=== PATIENT | female | born 1955 | race Caucasian/White ===

== ENCOUNTER → 2017-02-12 | Outpatient (CLI) | payer OTHER | LOC: WI 13:02 | PROVIDERS: ATTEND Obstetrics & Gynecology Gynecology | DX: Z12.31 Encounter for screening mammogram for malignant neoplasm of breast (principal) | CPT/HCPCS: 77067; G0202 ==

== ENCOUNTER → 2018-02-13 | Outpatient (CLI) | payer OTHER ==
--- NOTE | 2018-02-13 16:55 | WOMENS IMAGING REPORT ---
EXAM DESCRIPTION: 3D SCREENING MAMMO BILAT COMPLETED DATE/TIME: 02/13/2018 12:37 pm REASON FOR STUDY: ROUTINE SCREENING;Z12.31 Z12.31 ENCNTR SCREEN MAMMOGRAM FOR MALIGNANT NEOPLASM OF YVONNE COMPARISON: 2011 to 2016 TECHNIQUE: Standard craniocaudal and mediolateral oblique views of each breast recorded using digita l acquisition and breast tomosynthesis. LIMITATIONS: None. FINDINGS: No masses, calcifications or architectural distortion. No areas of suspicion. Read with the assistance of CAD. .[facility] - R2 Cenova Version 1.3 .[facility] Imaging - R2 Cenova Version 1.3 .[facility] Imaging - R2 Cenova Version 2.4 .[facility] - R2 Cenova Version 2.4 .[facility] - R2 Tobacco Sieve Operator Version 9.2 IMPRESSION: NORMAL MAMMOGRAM. BIRADS 1. BREAST DENSITY: b. There are scattered areas of fibroglandular density. BIRAD: 1 NEGATIVE RECOMMENDATION: ROUTINE SCREENING COMMENT: The patient has been notified of the results by letter per SA requirements. Additional no tification policies are in place for contacting patient with suspicious or incomplete findings. Quality ID #[id number]: The [employer] recommends an annual screening mammogram for women aged 40 years or over. This facility utilizes a reminder system to ensure that all patients receive reminder letters, and/or direct phone calls for appointments. This includes reminders for routine scr eening mammograms, diagnostic mammograms, or other Breast Imaging Interventions when appropriate. Th is patient will be placed in the appropriate reminder system. The [employer] (ACR) has developed recommendations for screening MRI of the breast s in certain patient populations, to be used in conjunction with mammography. Breast MRI surveillanc e may be appropriate for women with more than 20% lifetime risk of developing breast cancer as deter mined by genetic testing, significant family history of the disease, or history of mantle radiation f or Hodgkins Disease. ACR Practice Guidelines 2008. DBT Technology DBT is a type of tomographic mammography. With conventional mammography, overlapping breast tissue ma y make lesions difficult to detect, even with good compression. DBT uses an x-ray tube that rotates a round the breast, taking images at different angles. These images are then combined to create thin sl ices of the breast that the radiologist can view as a 3D reconstruction. The [employer] unit can perform full-field digital mammograms (2D imaging); or DBT (3D imaging); or both, in a combination mode that quickly performs both the mammogram and the tomosynthesis scan while the breast is still compressed. PQRS 6045F: Fluoroscopic imaging is not utilized for breast tomosynthesis. TECHNICAL DOCUMENTATION: FINDING NUMBER: (1) ASSESSMENT: (1) JOB ID: [id number] [employer]- All Rights Reserved Reading location - IP/workstation name: [email or web address]
== END ==
LOC: WI 11:10
PROVIDERS: ATTEND Obstetrics & Gynecology Gynecology
DX: Z12.31 Encounter for screening mammogram for malignant neoplasm of breast (principal)
CPT/HCPCS: 77063; 77067

== ENCOUNTER 2018-07-14 14:53 | Inpatient (IN) | payer OTHER ==
[2018-07-14 18:02] LABS: APPEARANCE,URINE CLEAR; BILIRUBIN,URINE NEGATIVE (NEGATIVE); COLOR,URINE STRAW; GLUCOSE, URINE NEGATIVE (NEGATIVE); KETONES,URINE 100 mg/dL (NEGATIVE); URINE SPECIFIC GRAVITY 1.015
[2018-07-14 18:03] LABS: LEUKOCYTE ESTERASE,URINE TRACE (NEGATIVE); NITRITE,URINE NEGATIVE (NEGATIVE); PROTEIN,URINE NEGATIVE (NEGATIVE); UROBILINOGEN,URINE NEGATIVE mg/dL (<2.0)
[2018-07-14 18:34] LABS: ABSOLUTE LYMPHOCYTES (AUTO) 2.1 10^3/uL (0.5-4.7); ABSOLUTE MONOCYTES (AUTO) 1.2 10^3/uL (0.1-1.4); ABSOLUTE NEUT (AUTO) 9.9 10^3/uL (1.7-8.2); BASOPHILS % (AUTO) 0.3 % (0-2); EOSINOPHILS % (AUTO) 0.2 % (0-6); HEMATOCRIT 34.1 % (36.0-47.0); HEMOGLOBIN 11.5 g/dL (12.0-15.5); LYMPHOCYTES % (AUTO) 15.8 % (13-45); MEAN CORPUSCULAR HEMOGLOBIN 30.8 pg (27.0-33.4); MEAN CORPUSCULAR HGB CONC 33.6 g/dL (32.0-36.0); MEAN CORPUSCULAR VOLUME 92 fl (80-97); MONOCYTES % (AUTO) 8.8 % (3-13); PLATELET COUNT 288 10^3/uL (150-450); RED BLOOD COUNT 3.73 10^6/uL (3.72-5.28); RED CELL DISTRIBUTION WIDTH 13.5 % (11.5-14.0); SEGMENTED NEUTROPHILS % (AUTO) 74.9 % (42-78); TOTAL CELLS COUNTED % (AUTO) 100 %; WHITE BLOOD COUNT 13.2 10^3/uL (4.0-10.5)
[2018-07-14 18:55] LABS: ALANINE AMINOTRANSFERASE 29 U/L (9-52); ALBUMIN 4.1 g/dL (3.5-5.0); ALKALINE PHOSPHATASE 116 U/L (38-126); ANION GAP 8 (5-19); ASPARTATE AMINO TRANSFERASE 47 U/L (14-36); BILIRUBIN,DIRECT 0.6 mg/dL (0.0-0.4); BILIRUBIN,TOTAL 2.5 mg/dL (0.2-1.3); BLOOD UREA NITROGEN 39 mg/dL (7-20); CALCIUM 9.2 mg/dL (8.4-10.2); CARBON DIOXIDE 30 mmol/L (22-30); CHLORIDE 102 mmol/L (98-107); GLUCOSE 134 mg/dL (75-110); LIPASE 22.5 U/L (23-300); POTASSIUM 3.5 mmol/L (3.6-5.0); SODIUM 139.8 mmol/L (137-145); TOTAL PROTEIN 6.8 g/dL (6.3-8.2)
[2018-07-14] MEDS ORDERED: ASPIRIN 325 MG TABLET PO ONE (19:25)
--- NOTE | 2018-07-14 19:25 | ER Document Report ---
ED Medical Screen (RME) - General Chief Complaint: Low Blood Sugar Stated Complaint: BLOOD SUGAR ISSUES Time Seen by Provider: 07/14/18 16:17 Mode of Arrival: Ambulatory Information source: Patient Notes: Patient complained of nausea vomiting and not able to keep down her medication today. Denies chest pain and also denies abdominal pain. Patient says she generally does not feel well. Physical exam is unremarkable and the rest of review of system is normal. I have greeted and performed a rapid initial assessment of this patient. A comprehensive ED assessment and evaluation of the patient, analysis of test results and completion of the medical decision making process will be conducted by additional ED providers. TRAVEL OUTSIDE OF THE [place] IN LAST 30 DAYS: No - Related Data Allergies/Adverse Reactions: Penicillins Allergy (Mild, Verified 07/14/18 16:01) clarithromycin [From Biaxin] Adverse Reaction (Intermediate, Verified 07/14/18 16:01) bee stings Allergy (Severe, Uncoded 07/14/18 16:01) Edema Past Medical History - Social History Chew tobacco use (# tins/day): No Frequency of alcohol use: None Drug Abuse: None - Past Medical History Cardiac Medical History: Reports: Hx Heart Attack - 2000, Hx Hypercholesterolemia, Hx Hypertension - [place] in 2000 with 1 stent Denies: Hx Coronary Artery Disease Pulmonary Medical History: Reports: Hx Pneumonia - As an infant Denies: Hx Asthma, Hx Bronchitis, Hx COPD, Hx Tuberculosis Neurological Medical History: Denies: Hx Cerebrovascular Accident, Hx Seizures Endocrine Medical History: Reports: Hx Diabetes Mellitus Type 1, Hx Diabetes Mellitus Type 2, Hx Hyperthyroidism Renal/ Medical History: Denies: Hx Peritoneal Dialysis GI Medical History: Reports: Hx Gastroesophageal Reflux Disease Musculoskeltal Medical History: Reports Hx Arthritis Past Surgical History: Reports: Hx Cardiac Catheterization - 1 stent, Hx Cardiac Surgery - sent, Hx Section - 1986, Hx Cholecystectomy - 2 weeks ago, Hx Hysterectomy. Denies: Hx Pacemaker - Immunizations Hx Diphtheria, Pertussis, Tetanus Vaccination: Yes Physical Exam - Vital signs Vitals: Temp Pulse Resp BP Pulse Ox 98.5 F 77 18 158/45 H 98 07/14/18 15:04 07/14/18 15:04 07/14/18 15:04 07/14/18 15:04 07/14/18 15:04 Course - Vital Signs Vital signs: Temp Pulse Resp BP Pulse Ox 98.5 F 77 18 158/45 H 98 07/14/18 15:04 07/14/18 15:04 07/14/18 15:04 07/14/18 15:04 07/14/18 15:04 - Laboratory Result Diagrams: 07/14/18 18:17 07/14/18 18:17 Laboratory results interpreted by me: 07/14/18 07/14/18 07/14/18 17:34 18:17 18:17 WBC 13.2 H Hgb 11.5 L Hct 34.1 L Absolute Neutrophils 9.9 H Potassium 3.5 L BUN 39 H Glucose 134 H Total Bilirubin 2.5 H Direct Bilirubin 0.6 H AST 47 H Lipase 22.5 L Urine Ketones 100 H Ur Leukocyte Esterase TRACE H Doctor's Discharge - Discharge Referrals: SELENA MARTIN, CHECK VIEWER [Primary Care Provider] - Follow up as needed
[2018-07-14] MEDS ORDERED: ATORVASTATIN CALCIUM 80 MG TABLET PO ONE (20:38)
--- NOTE | 2018-07-14 20:45 | ER Document Report ---
ED General - General Chief Complaint: Low Blood Sugar Stated Complaint: BLOOD SUGAR ISSUES Time Seen by Provider: 07/14/18 16:17 Mode of Arrival: Ambulatory Notes: Patient is a 62-year-old female with a past medical history of coronary artery disease, insulin-dependent type 1 diabetes who presents with 3 days of nausea, vomiting and feeling generally poor. She denies any chest pain, shortness of breath, focal weakness or numbness. Nothing improves or worsens her symptoms. She attributed her symptoms initially to low blood sugar but admits that her blood sugars have actually been relatively well controlled on her insulin pump. No known sick contacts. She denies a history of similar symptoms in the past. Her last cardiac catheterization was in 2000 and she had a stent placed at that time. She has been unable to contact her primary care doctor due to the weather. TRAVEL OUTSIDE OF THE [place] IN LAST 30 DAYS: No - Related Data Allergies/Adverse Reactions: Penicillins Allergy (Mild, Verified 07/14/18 16:01) clarithromycin [From Biaxin] Adverse Reaction (Intermediate, Verified 07/14/18 16:01) bee stings Allergy (Severe, Uncoded 07/14/18 16:01) Edema Past Medical History - General Information source: Patient - Social History Smoking Status: Never Smoker Chew tobacco use (# tins/day): No Frequency of alcohol use: None Drug Abuse: None Lives with: Family Family History: Reviewed & Not Pertinent Patient has suicidal ideation: No Patient has homicidal ideation: No - Past Medical History Cardiac Medical History: Reports: Hx Heart Attack - 2000, Hx Hypercholesterolemia, Hx Hypertension - [place] in 2000 with 1 stent Denies: Hx Coronary Artery Disease Pulmonary Medical History: Reports: Hx Pneumonia - As an infant Denies: Hx Asthma, Hx Bronchitis, Hx COPD, Hx Tuberculosis Neurological Medical History: Denies: Hx Cerebrovascular Accident, Hx Seizures Endocrine Medical History: Reports: Hx Diabetes Mellitus Type 1, Hx Diabetes Mellitus Type 2, Hx Hyperthyroidism Renal/ Medical History: Denies: Hx Peritoneal Dialysis GI Medical History: Reports: Hx Gastroesophageal Reflux Disease Musculoskeletal Medical History: Reports Hx Arthritis Past Surgical History: Reports: Hx Cardiac Catheterization - 1 stent, Hx Cardiac Surgery - sent, Hx Section - 1986, Hx Cholecystectomy - 2 weeks ago, Hx Hysterectomy. Denies: Hx Pacemaker - Immunizations Hx Diphtheria, Pertussis, Tetanus Vaccination: Yes Hx Pneumococcal Vaccination: 10/29/07 Review of Systems - Review of Systems Notes: Constitutional: Negative for fever. HENT: Negative for sore throat. Eyes: Negative for visual changes. Cardiovascular: Negative for chest pain. Respiratory: Negative for shortness of breath. Gastrointestinal: Positive for vomiting. Negative for abdominal pain Genitourinary: Negative for dysuria. Musculoskeletal: Negative for back pain. Skin: Negative for rash. Neurological: Negative for headaches, weakness or numbness. 10 point ROS negative except as marked above and in HPI. Physical Exam - Vital signs Vitals: Temp Pulse Resp BP Pulse Ox 98.5 F 77 18 158/45 H 98 07/14/18 15:04 07/14/18 15:04 07/14/18 15:04 07/14/18 15:04 07/14/18 15:04 Interpretation: Hypertensive Notes: PHYSICAL EXAMINATION: GENERAL: Well-appearing, well-nourished and in no acute distress. HEAD: Atraumatic, normocephalic. EYES: Pupils equal round and reactive to light, extraocular movements intact, sclera anicteric, conjunctiva are normal. ENT: nares patent, oropharynx clear without exudates. Moist mucous membranes. NECK: Normal range of motion, supple without lymphadenopathy LUNGS: Breath sounds clear to auscultation bilaterally and equal. No wheezes rales or rhonchi. HEART: Regular rate and rhythm without murmurs ABDOMEN: Soft, nontender, normoactive bowel sounds. No guarding, no rebound. No masses appreciated. EXTREMITIES: Normal range of motion, no pitting or edema. No cyanosis. NEUROLOGICAL: No focal neurological deficits. Moves all extremities spontaneously and on command. PSYCH: Normal mood, normal affect. SKIN: Warm, Dry, normal turgor, no rashes or lesions noted. Course - Re-evaluation Re-evalutation: 07/14/18 20:40 Patient presents with concerns regarding her blood sugar and persistent vomiting for the past 3 days. He denies chest pain or shortness of breath but her troponin is markedly elevated at 2.4. Her EKG does show some mild ST depressions in V3 through 6 but this is effectively unchanged from her most recent EKG. She currently denies any symptoms of any kind. However I do suspect that this is an atypical presentation of a NSTEMI. She does have a history of coronary artery disease, had a stent placed at [facility] in 2000. We are currently in a disastrous situation, will work to try to arrange as rapid transport as possible. In the interim the patient will be given a dose of Lovenox, atorvastatin, aspirin. She was placed on telemetry. I will discuss with [facility] for transfer. 07/14/18 21:57 [address] did discuss with Dr. Hidalgo a hospitalist at [facility] who has accepted the patient. Patient has remained pain free. She remains hemodynamically stable. 07/15/18 03:14 Patient remains without chest pain. Her insulin pump remains in place. She is scheduled for a [facility] in the morning due to the weather. Repeat troponin will also be obtained. - Vital Signs Vital signs: Temp Pulse Resp BP Pulse Ox 98.5 F 77 15 146/46 H 97 07/14/18 15:04 07/14/18 15:04 07/15/18 01:50 07/15/18 01:49 07/15/18 01:50 - Laboratory Result Diagrams: 07/14/18 18:17 07/14/18 18:17 Laboratory results interpreted by me: 07/14/18 07/14/18 07/14/18 17:34 18:17 18:17 WBC 13.2 H Hgb 11.5 L Hct 34.1 L Absolute Neutrophils 9.9 H Potassium 3.5 L BUN 39 H Glucose 134 H Total Bilirubin 2.5 H Direct Bilirubin 0.6 H AST 47 H Lipase 22.5 L Urine Ketones 100 H Urine Urobilinogen Ur Leukocyte Esterase TRACE H 07/15/18 02:00 WBC Hgb Hct Absolute Neutrophils Potassium BUN Glucose Total Bilirubin Direct Bilirubin AST Lipase Urine Ketones 25 H Urine Urobilinogen 4.0 H Ur Leukocyte Esterase LARGE H - Diagnostic Test Radiology reviewed: Image reviewed, Reports reviewed Radiology results interpreted by me: 07/15/18 03:15 Chest x-ray: No acute infiltrate or pneumothorax - EKG Interpretation by Me Additional EKG results interpreted by me: 07/14/18 20:48 Sinus rhythm. Rate 72. Subtle ST depressions in V3 through 6 unchanged from prior 2011. QTC is 446. Discharge - Discharge Clinical Impression: NSTEMI (non-ST elevated myocardial infarction) Nausea and vomiting Qualifiers: Vomiting type: unspecified Vomiting Intractability: non-intractable Qualified Code(s): R11.2 - Nausea with vomiting, unspecified Condition: Fair Disposition: [place] Referrals: SELENA MARTIN, METAL GRADER [Primary Care Provider] - Follow up as needed
[2018-07-14] MEDS ORDERED: ATORVASTATIN CALCIUM 80 MG TABLET ONE (21:04)
[2018-07-14] MEDS ORDERED: ENOXAPARIN SODIUM INJ 120 MG/0.8 ML DISP.SYRIN SUBCUT ONE (22:11)
[2018-07-14] MEDS ORDERED: ENOXAPARIN SODIUM INJ 100 MG/1 ML DISP.SYRIN SUBCUT ONE (22:13)
[2018-07-14] MEDS: ENOXAPARIN SODIUM INJ 100 MG/1 ML DISP.SYRIN SUBCUT SCH (22:16)
[2018-07-15 03:06] LABS: APPEARANCE,URINE CLEAR; BILIRUBIN,URINE NEGATIVE (NEGATIVE); COLOR,URINE YELLOW; GLUCOSE, URINE NEGATIVE (NEGATIVE); KETONES,URINE 25 mg/dL (NEGATIVE); LEUKOCYTE ESTERASE,URINE LARGE (NEGATIVE); NITRITE,URINE NEGATIVE (NEGATIVE); PROTEIN,URINE NEGATIVE (NEGATIVE); URINE SPECIFIC GRAVITY 1.019
[2018-07-15 04:52] LABS: HEMATOCRIT 33.2 % (36.0-47.0); MEAN CORPUSCULAR HEMOGLOBIN 30.3 pg (27.0-33.4); MEAN CORPUSCULAR HGB CONC 33.2 g/dL (32.0-36.0); MEAN CORPUSCULAR VOLUME 91 fl (80-97); PLATELET COUNT 249 10^3/uL (150-450); RED BLOOD COUNT 3.65 10^6/uL (3.72-5.28); RED CELL DISTRIBUTION WIDTH 13.4 % (11.5-14.0)
--- NOTE | 2018-07-15 05:14 | EKG REPORT ---
SEVERITY:- ABNORMAL ECG - SINUS RHYTHM PROBABLE INFERIOR INFARCT, AGE INDETERMINATE NONSPECIFIC T ABNORMALITIES, ANT-LAT LEADS : Confirmed by: Dionisio Wei 15-Jul-2018 05:14:28
--- NOTE | 2018-07-15 08:36 | RADIOLOGY REPORT (SQ) ---
EXAM DESCRIPTION: CHEST SINGLE VIEW COMPLETED DATE/TIME: 07/14/2018 11:08 pm REASON FOR STUDY: cp COMPARISON: 07/06/2012 EXAM PARAMETERS: NUMBER OF VIEWS: One view. TECHNIQUE: Single frontal radiographic view of the chest acquired. RADIATION DOSE: NA LIMITATIONS: None. FINDINGS: LUNGS AND PLEURA: No opacities, masses or pneumothorax. No pleural effusion. MEDIASTINUM AND HILAR STRUCTURES: No masses. Contour normal. HEART AND VASCULAR STRUCTURES: Heart normal in size. Normal vasculature. BONES: No acute findings. HARDWARE: None in the chest. OTHER: No other significant finding. IMPRESSION: NO ACUTE RADIOGRAPHIC FINDING IN THE CHEST. TECHNICAL DOCUMENTATION: JOB ID: [id number] [employer]- All Rights Reserved Reading location - IP/workstation name: [email or web address]
[2018-07-15] MEDS: ENOXAPARIN SODIUM INJ 100 MG/1 ML DISP.SYRIN SUBCUT SCH ×2 (10:01→23:08)
[2018-07-15] MEDS ORDERED: MAG HYDROX/AL HYDROX/SIMETH SUSP 30 ML UDCUP PO PRN (14:38)
[2018-07-15] MEDS ORDERED: NITROGLYCERIN 0.4 MG/TAB 25 TAB/BOTTLE SL PRN (14:38)
[2018-07-15] MEDS ORDERED: MORPHINE SULFATE 10 MG/ML INJ IV PRN (14:38)
[2018-07-15] MEDS ORDERED: HYDRALAZINE HCL INJ/PF 20 MG/1 ML SDV IV PRN (14:47)
[2018-07-15] MEDS ORDERED: GLUCAGON,HUMAN RECOMB 1 MG INJ IM PRN (14:48)
[2018-07-15] MEDS ORDERED: DEXTROSE 50%-WATER 25 GM/50 ML DISP.SYRIN IV PRN ×2 (14:48)
[2018-07-15] MEDS ORDERED: DEXTROSE 40% GEL 15 GM TUBE PO PRN ×2 (14:48)
--- NOTE | 2018-07-15 15:04 | PDOC H&P ---
History of Present Illness Admission Date/PCP: 07/15/18 12:41 SELENA MARTIN NP History of Present Illness: COLT TONG is a 62 year old female with a past medical history significant for insulin-dependent diabetes mellitus, [place] status post 1 stent, hypertension, hyperlipidemia, hypothyroidism, GERD, and anemia who presented to the emergency department with a complaint of dehydration due to nausea and vomiting for the previous 3 days. She reports that she had discontinued her insulin pump due to nausea and vomiting and was concerned about elevated blood sugars. Evaluation in the emergency department revealed leukocytosis with a WBC of 13.2 which has subsequently resolved, baseline anemia with a hemoglobin of 11.5, slight hypokalemia (3.5), elevated BUN (39), glucose of 134. Most significantly she was noted to have an elevated troponin of 2.340. Initially the patient was arranged to be transferred [facility] all those [facility] [place] for continued care; the patient's established family practice physician is located at [facility]. At some point, the patient declined the transfer; the ED physician consulted in-house cardiology who approved the patient staying at [facility] for medical management. She was referred to the hospitalist service for admission and management of the above complaints. Past Medical History Cardiac Medical History: Reports: Myocardial Infarction - 2000; s/p stent x1, Hyperlipidema, Hypertension Pulmonary Medical History: Denies: Asthma, Bronchitis, Chronic Obstructive Pulmonary Disease (COPD), Tuberculosis Neurological Medical History: Denies: Seizures Endocrine Medical History: Reports: Diabetes Mellitus Type 2 - IDDM, Hyperthyroidism Renal/ Medical History: Reports: None Malignancy Medical History: Reports: None GI Medical History: Reports: Gastroesophageal Reflux Disease Musculoskeltal Medical History: Reports: Arthritis Skin Medical History: Reports: None Psychiatric Medical History: Reports: None Traumatic Medical History: Reports: None Hematology: Reports: Anemia Infectious Medical History: Reports: None Past Surgical History Past Surgical History: Reports: Cardiac Catheterization - 1 stent, Section - 1986, Cholecystectomy, Hysterectomy Denies: Pacemaker Social History Information Source: Patient Lives with: Family Smoking Status: Never Smoker Frequency of Alcohol Use: None Hx Recreational Drug Use: No Hx Prescription Drug Abuse: No - Advance Directive Resuscitation Status: Full Code Surrogate healthcare decision maker:: The patient's son, PAMELA Tong, Family History Family History: Reviewed & Not Pertinent Parental Family History Reviewed: Yes Children Family History Reviewed: Yes Sibling(s) Family History Reviewed.: Yes Medication/Allergy Allergies/Adverse Reactions: Penicillins Allergy (Mild, Verified 07/14/18 16:01) clarithromycin [From Biaxin] Adverse Reaction (Intermediate, Verified 07/14/18 16:01) bee stings Allergy (Severe, Uncoded 07/14/18 16:01) Edema Review of Systems Constitutional: ABSENT: chills, fever(s), headache(s), weight gain, weight loss Eyes: ABSENT: visual disturbances Ears: ABSENT: hearing changes Cardiovascular: PRESENT: as per HPI. ABSENT: chest pain, dyspnea on exertion, edema, orthropnea, palpitations Respiratory: ABSENT: cough, hemoptysis Gastrointestinal: PRESENT: as per HPI, nausea, vomiting. ABSENT: abdominal pain , constipation, diarrhea, hematemesis, hematochezia Genitourinary: ABSENT: dysuria, hematuria Musculoskeletal: ABSENT: joint swelling Integumentary: ABSENT: rash, wounds Neurological: ABSENT: abnormal gait, abnormal speech, confusion, dizziness, focal weakness, syncope Psychiatric: ABSENT: anxiety, depression, homidical ideation, suicidal ideation Endocrine: ABSENT: cold intolerance, heat intolerance, polydipsia, polyuria Hematologic/Lymphatic: ABSENT: easy bleeding, easy bruising Physical Exam Vital Signs: Temp Pulse Resp BP Pulse Ox 98.5 F 77 17 168/58 H 97 07/14/18 15:04 07/14/18 15:04 07/15/18 13:01 07/15/18 13:00 07/15/18 13:01 General appearance: PRESENT: no acute distress, obese, well-developed, well- nourished Head exam: PRESENT: atraumatic, normocephalic Eye exam: PRESENT: conjunctiva pink, EOMI, PERRLA. ABSENT: scleral icterus Ear exam: PRESENT: normal external ear exam Mouth exam: PRESENT: moist, tongue midline Neck exam: ABSENT: carotid bruit, JVD, lymphadenopathy, thyromegaly Respiratory exam: PRESENT: clear to auscultation hollie, symmetrical, unlabored. ABSENT: rales, rhonchi, wheezes Cardiovascular exam: PRESENT: RRR, +S1, +S2. ABSENT: diastolic murmur, rubs, systolic murmur Pulses: PRESENT: normal dorsalis pedis pul Vascular exam: PRESENT: normal capillary refill GI/Abdominal exam: PRESENT: normal bowel sounds, soft. ABSENT: distended, guarding, mass, organolmegaly, rebound, tenderness Rectal exam: PRESENT: deferred Extremities exam: PRESENT: full ROM. ABSENT: calf tenderness, clubbing, pedal edema Neurological exam: PRESENT: alert, awake, oriented to person, oriented to place , oriented to time, oriented to situation, CN II-XII grossly intact. ABSENT: motor sensory deficit Psychiatric exam: PRESENT: appropriate affect, normal mood. ABSENT: homicidal ideation, suicidal ideation Skin exam: PRESENT: dry, intact, warm. ABSENT: cyanosis, rash Results Impressions: Chest X-Ray 07/14/18 21:53 IMPRESSION: NO ACUTE RADIOGRAPHIC FINDING IN THE CHEST. Assessment & Plan - Diagnosis (1) NSTEMI (non-ST elevated myocardial infarction) Is this a current diagnosis for this admission?: Yes Plan: The patient presented with vague symptoms of "dehydration" but is unable to describe her symptoms in detail. She does confirm that she had 3 days of nausea and vomiting prior to arrival to the emergency department. She denies classic cardiac chest pain symptoms, back pain, shoulder pain, headache, dizziness, palpitations, dyspnea. Troponin was elevated 2.34, now trending down. 2.34--> 1.990--> 1.520 EKG demonstrates normal sinus rhythm with nonspecific T-wave changes to the anterior and lateral leads. Chest x-ray is benign. The patient declined transfer divided despite having an accepting physician. Therefore, her transfer was discontinued. Cardiology has been consulted; primary management per their expertise. The patient has been placed on full dose Lovenox and aspirin therapy. She is admitted to the telemetry floor. (2) Diabetes mellitus Qualifiers: Diabetes mellitus type: type 2 Diabetes mellitus half-way insulin use: with termination clerk use Is this a current diagnosis for this admission?: Yes Plan: Patient endorses insulin-dependent diabetes mellitus; utilizes insulin pump at home. She reports that she had nausea and vomiting for several days and therefore discontinued her insulin pump because she was not eating. She presents to the emergency department today concerned that she was dehydrated. Fortunately she was found to have a glucose of 134 with a closed anion gap and normal bicarb. She is noted to be slightly dehydrated with BUN of 39 and normal creatinine. She is placed on a consistent carb diet. Accu-Cheks before meals and at bedtime with Humalog for sliding scale coverage. We will assess hemoglobin A1c with lab work. (3) Hypertension Is this a current diagnosis for this admission?: Yes Plan: The patient endorses hypertension; believes that she takes ramipril and labetalol but does not have her medications her list with her today. She is noted to be slightly hypertensive in the emergency department. We will resume home medications once reconciled. IV hydralazine as needed for blood pressure control. Cardiac diet. (4) Hyperlipidemia Is this a current diagnosis for this admission?: Yes Plan: Lipid panel with the lab work. Continue atorvastatin. (5) GERD (gastroesophageal reflux disease) Is this a current diagnosis for this admission?: Yes Plan: PPI. (6) Nausea and vomiting Qualifiers: Vomiting type: unspecified Vomiting Intractability: non-intractable Qualified Code(s): R11.2 - Nausea with vomiting, unspecified Is this a current diagnosis for this admission?: Yes Plan: Resolved. Antiemetics as needed. - Time Time Spent: 50 to 70 Minutes Medications reviewed and adjusted accordingly: Yes Anticipated discharge: Home Within: within 72 hours - Inpatient Certification Based on my medical assessment, after consideration of the patient's comorbidities, presenting symptoms, or acuity I expect that the services needed warrant INPATIENT care.: Yes I certify that my determination is in accordance with my understanding of Medicare's requirements for reasonable and necessary INPATIENT services [42 CFR 412.3e].: Yes Medical Necessity: Need For Continuous Telemetry Monitoring, Risk of Diagnosis Which Will Require Inpatient Eval/Care/Monitoring
[2018-07-15 16:13] LABS: HEMOGLOBIN 11.7 g/dL (12.0-15.5); MEAN CORPUSCULAR HEMOGLOBIN 30.4 pg (27.0-33.4); MEAN CORPUSCULAR HGB CONC 33.6 g/dL (32.0-36.0); MEAN CORPUSCULAR VOLUME 91 fl (80-97); PLATELET COUNT 282 10^3/uL (150-450); RED BLOOD COUNT 3.87 10^6/uL (3.72-5.28); RED CELL DISTRIBUTION WIDTH 13.5 % (11.5-14.0); WHITE BLOOD COUNT 7.4 10^3/uL (4.0-10.5)
[2018-07-15 16:38] LABS: ANION GAP 6 (5-19); BLOOD UREA NITROGEN 23 mg/dL (7-20); CALCIUM 9.1 mg/dL (8.4-10.2); CARBON DIOXIDE 31 mmol/L (22-30); CHLORIDE 104 mmol/L (98-107); GLUCOSE 110 mg/dL (75-110); POTASSIUM 3.4 mmol/L (3.6-5.0); SODIUM 140.6 mmol/L (137-145)
[2018-07-15] MEDS: ATORVASTATIN CALCIUM 80 MG TABLET PO SCH (22:59)
[2018-07-15] MEDS: FAMOTIDINE 20 MG TABLET PO SCH (23:00)
[2018-07-15] MEDS: INSULIN LISPRO 100 UNIT/ML 3 ML VIAL SUBCUT PRN (23:20)
[2018-07-16] MEDS: ONDANSETRON HCL INJ/PF 4 MG/2 ML SDV IV PRN (03:09)
[2018-07-16 05:15] LABS: HEMATOCRIT 32.6 % (36.0-47.0); HEMOGLOBIN 11.1 g/dL (12.0-15.5); MEAN CORPUSCULAR HEMOGLOBIN 31.1 pg (27.0-33.4); MEAN CORPUSCULAR HGB CONC 34.1 g/dL (32.0-36.0); MEAN CORPUSCULAR VOLUME 91 fl (80-97); PLATELET COUNT 234 10^3/uL (150-450); RED BLOOD COUNT 3.57 10^6/uL (3.72-5.28); RED CELL DISTRIBUTION WIDTH 13.5 % (11.5-14.0); WHITE BLOOD COUNT 7.8 10^3/uL (4.0-10.5)
[2018-07-16 05:34] LABS: BLOOD UREA NITROGEN 19 mg/dL (7-20); CALCIUM 8.4 mg/dL (8.4-10.2); CHOLESTEROL 130.34 mg/dL (0-200); GLUCOSE 229 mg/dL (75-110); POTASSIUM 3.7 mmol/L (3.6-5.0); TRIGLYCERIDES 95 mg/dL (<150)
[2018-07-16 05:39] LABS: ANION GAP 7 (5-19); CARBON DIOXIDE 28 mmol/L (22-30); CHLORIDE 106 mmol/L (98-107); SODIUM 140.5 mmol/L (137-145)
[2018-07-16 05:45] LABS: DIRECT LDL 70 mg/dL (<100)
[2018-07-16] MEDS ORDERED: DOCUSATE SODIUM 100 MG CAPSULE ONE (08:25)
[2018-07-16] MEDS ORDERED: INSULIN LISPRO 100 UNIT/ML 3 ML VIAL ONE (08:25)
[2018-07-16] MEDS ORDERED: ENOXAPARIN SODIUM INJ 40 MG/0.4 ML DISP.SYRIN SUBCUT ONE (08:25)
[2018-07-16] MEDS ORDERED: ASPIRIN 81 MG TABLET, ENT COATED PO ONE (08:25)
[2018-07-16] MEDS: INSULIN LISPRO 100 UNIT/ML 3 ML VIAL SUBCUT PRN ×4 (08:26→23:13)
[2018-07-16] MEDS: ASPIRIN 81 MG TABLET, ENT COATED PO SCH (09:15)
[2018-07-16] MEDS: DOCUSATE SODIUM 100 MG CAPSULE PO SCH (09:15)
[2018-07-16] MEDS: ENOXAPARIN SODIUM INJ 100 MG/1 ML DISP.SYRIN SUBCUT SCH ×2 (09:15→23:12)
[2018-07-16] MEDS: FAMOTIDINE 20 MG TABLET PO SCH ×2 (09:16→23:11)
--- NOTE | 2018-07-16 15:26 | EKG REPORT ---
SEVERITY:- ABNORMAL ECG - SINUS RHYTHM CONSIDER ANTERIOR INFARCT ABNORMAL T, CONSIDER ISCHEMIA, LATERAL LEADS : Confirmed by: Evon King MD 16-Jul-2018 15:25:35
[2018-07-16] MEDS: METOPROLOL SUCCINATE 25 MG TAB.SR.24H PO SCH (23:11)
[2018-07-16] MEDS: ATORVASTATIN CALCIUM 80 MG TABLET PO SCH (23:11)
[2018-07-16] MEDS ORDERED: RAMIPRIL 2.5 MG CAPSULE ONE (23:20)
[2018-07-16] MEDS: RAMIPRIL 2.5 MG CAPSULE PO SCH (23:22)
[2018-07-17 04:49] LABS: HEMOGLOBIN 11.1 g/dL (12.0-15.5); MEAN CORPUSCULAR HEMOGLOBIN 31.2 pg (27.0-33.4); MEAN CORPUSCULAR HGB CONC 34.7 g/dL (32.0-36.0); MEAN CORPUSCULAR VOLUME 90 fl (80-97); PLATELET COUNT 232 10^3/uL (150-450); RED BLOOD COUNT 3.56 10^6/uL (3.72-5.28); RED CELL DISTRIBUTION WIDTH 13.2 % (11.5-14.0); WHITE BLOOD COUNT 7.9 10^3/uL (4.0-10.5)
[2018-07-17] MEDS: INSULIN LISPRO 100 UNIT/ML 3 ML VIAL SUBCUT PRN ×4 (08:19→22:48)
[2018-07-17] MEDS: RAMIPRIL 2.5 MG CAPSULE PO SCH ×2 (10:03→23:30)
[2018-07-17] MEDS: METOPROLOL SUCCINATE 25 MG TAB.SR.24H PO SCH ×2 (10:04→22:47)
[2018-07-17] MEDS: ISOSORBIDE MONONITRATE 60 MG TAB.ER.24H PO SCH (10:04)
[2018-07-17] MEDS: FAMOTIDINE 20 MG TABLET PO SCH ×2 (10:04→22:47)
[2018-07-17] MEDS: DOCUSATE SODIUM 100 MG CAPSULE PO SCH (10:04)
[2018-07-17] MEDS: ENOXAPARIN SODIUM INJ 100 MG/1 ML DISP.SYRIN SUBCUT SCH (10:05)
[2018-07-17] MEDS ORDERED: CLOPIDOGREL BISULFATE 300 MG TABLET PO ONE ×2 (11:31→16:30)
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
--- NOTE | 2018-07-17 12:25 | PDOC PROGRESS REPORT ---
Subjective Progress Note for:: 07/17/18 Subjective:: Patient seems to be doing better with gradual improvement. Pt is denying any chest arm or neck discomfort. Patient denying any PND, orthopnea. Patient denied any sustained palpitations, dizziness, syncope, near syncope. Patient denying any fever chills. Patient denying any other significant discomfort. Patient is maintaining sinus rhythm. Review of systems: Rest review of systems negative. Medications: Medications have been reviewed. Reason For Visit: NSTEMI Physical Exam Vital Signs: Temp Pulse Resp BP Pulse Ox 98.7 F 67 14 165/49 H 96 07/17/18 08:02 07/17/18 08:02 07/17/18 08:02 07/17/18 08:02 07/17/18 08:02 Intake & Output 07/16/18 07/17/18 07/18/18 06:59 06:59 06:59 Intake Total 200 2514 Balance 200 2514 Weight 84.4 kg 85.7 kg Exam: GENERAL: well-nourished and in no acute distress. Alert and oriented x3 HEAD: Atraumatic, normocephalic. EYES: Pupils equal round and reactive to light, extraocular movements intact, sclera anicteric, conjunctiva are normal. ENT: TMs normal, nares patent, oropharynx clear without exudates. Moist mucous membranes. No oral ulcerations or bleeding gums noted NECK: supple without lymphadenopathy. Trachea is central. No cervical or axillary lymphadenopathy noted. Carotids are 2+, JVD WNL LUNGS: Respiration seems nonlabored, no significant accessory muscle action noted. Breath sounds clear to auscultation bilaterally and equal noted. No wheezes rales or rhonchi noted. No significant dullness noted on percussion. CHEST: Palpation of the chest wall shows no significant chest wall tenderness. HEART: [place] WARDROBE STYLIST, No PSH, 1/6 ROSALBA aortic area, 1/6 martínez systolic murmur mitral area, no rubs, no gallops. ABDOMEN: Soft, no significant tenderness appreciated, normoactive bowel sounds. No guarding, no rebound. No rigidity noted . No masses appreciated. EXTREMITIES: Pedal pulses are 1-2+, no calf tenderness noted. No clubbing or cyanosis. negative pedal edema noted NEUROLOGICAL: Focused neurological exam showed no significant neurologic deficit. Normal speech, no focal weakness appreciated. PSYCH: Normal mood, normal affect. Judgment and insight within normal limits. SKIN: No significant ecchymosis, skin is noted to be warm. MUSCULOSKELETAL EXAM: No significant acute joint swelling noted. Results Laboratory Results: 07/17/18 04:24 07/16/18 04:58 07/17/18 04:24 WBC 7.9 RBC 3.56 L Hgb 11.1 L Hct 32.0 L MCV 90 MCH 31.2 MCHC 34.7 RDW 13.2 Plt Count 232 07/15/18 15:50 Troponin I 1.150 EKG Comments: Sinus rhythm with minor nonspecific ST-T wave changes Impressions: Chest X-Ray 07/14/18 21:53 IMPRESSION: NO ACUTE RADIOGRAPHIC FINDING IN THE CHEST. Assessment & Plan - Diagnosis (1) NSTEMI (non-ST elevated myocardial infarction) Is this a current diagnosis for this admission?: Yes (2) Diabetes mellitus Qualifiers: Diabetes mellitus type: type 2 Diabetes mellitus residential insulin use: with terminal computer operator use Diabetes mellitus complication status: without complication Qualified Code(s): E11.9 - Type 2 diabetes mellitus without complications; Z79.4 - extermination supervisor (current) use of insulin; Z79.4 - intermediate ( current) use of insulin; Z79.4 - intermediate (current) use of insulin; Z79.4 - extermination supervisor (current) use of insulin Is this a current diagnosis for this admission?: Yes (3) GERD (gastroesophageal reflux disease) Qualifiers: Esophagitis presence: esophagitis presence not specified Qualified Code(s) : K21.9 - Gastro-esophageal reflux disease without esophagitis Is this a current diagnosis for this admission?: Yes (4) Hyperlipidemia Qualifiers: Hyperlipidemia type: unspecified Qualified Code(s): E78.5 - Hyperlipidemia , unspecified Is this a current diagnosis for this admission?: Yes (5) Hypertension Qualifiers: Hypertension type: essential hypertension Qualified Code(s): I10 - Essential (primary) hypertension Is this a current diagnosis for this admission?: Yes - Notes Notes: Non-STEMI: Patient had positive troponin I but no significant EKG changes, patient denies any chest pain but does have diabetes. At this point will evaluate patient with a 2D echo, and a nuclear stress test. These were ordered. In the meantime with optimize medical management of underlying CAD. Patient does give history of previous stent placement. Diabetes: Recommend good control of blood sugar. However should avoid any hypoglycemia and hyperglycemia. Patient being expertly managed by primary care M.D/hospitalist Gastroesophageal reflux: Recommend proton pump inhibitor, Protonix favored. Hyperlipidemia: LDL goal is less than 70. Continue with high potency statin therapy. Hypertension: Reasonably well controlled. Blood pressure goal in this patient is 135/85 or less. This was discussed with the patient. Currently blood pressure under reasonable control. Better medication for this patient are REECE inhibitor/ARB/beta francisco javier etc. discussed side effects of uncontrolled hypertension and also severe hypotension. - Time Time with patient: Greater than 35 minutes - CODE STATUS was discussed, patient remains full code. More than 50% of the time spent coordinating care, discussing management plans with involved caregivers. Management plans discussed with involved personnels. Medical decision making was of moderate to high complexity, patient's has multiple comorbidities. Medications reviewed and adjusted accordingly: Yes
[2018-07-17] MEDS: ASPIRIN 81 MG TABLET, ENT COATED PO SCH (12:40)
--- NOTE | 2018-07-17 18:33 | XCELERA REPORT ---
[address] [address] Transthoracic Echocardiogram Report Name: COLT KASPER Age: 62 yrs Gender: Female : 1955 Patient Status: Inpatient Patient Location: [address] [place] [address] Study Date: 07/17/2018 02:50 PM Height: 67 in Weight: 188 lb BSA: 2.0 m2 Procedure: A complete two-dimensional transthoracic echocardiogram was performed (2D, M-mode, spectral and color flow Doppler). The study was technically adequate with some images being suboptimal in quality. Reason For Study: Chest pain, non-STEMI Ordering Physician: DIONISIO ARORA Performed By: Mariann Villegas Interpretation Summary The left ventricular ejection fraction is normal. There is mild concentric left ventricular hypertrophy. The left ventricle is grossly normal size. Doppler measurements suggest pseudonormalized left ventricular relaxation, which is associated with grade II/IV or mild to moderate diastolic dysfunction Wall motion cannot be accurately commented on, but no definite regional wall motion abnormalities noted. The right ventricle is grossly normal size. The right ventricular systolic function is normal. The right atrium is normal. The left atrial size is normal. There is no mitral valve stenosis. There is a trace amount of mitral regurgitation There is no aortic valve stenosis No aortic regurgitation is present. There is a trace or physiologic amount of tricuspid regurgitation Tricuspid regurgitation jet envelope not well defined to measure RV systolic pressure accurately. The aortic root is not well visualized but is probably normal size. The inferior vena cava appeared normal and decreased > 50% with respiration (RAP 5-10 mmHg) There is no pericardial effusion. MMode/2D Measurements & Calculations RVDd: 2.6 cm LVIDd: 4.2 cm FS: 39.8 % Ao root diam: 2.5 cm IVSd: 1.0 cm LVIDs: 2.5 cm EDV(Teich): 76.9 ml Ao root area: 4.7 cm2 LVPWd: 0.98 cm ESV(Teich): 22.4 ml LA dimension: 3.4 cm EF(Teich): 70.9 % Doppler Measurements & Calculations MV E max chirag: MV P1/2t max chirag: Ao V2 max: LV V1 max P.4 cm/sec 122.9 cm/sec 146.6 cm/sec 4.9 mmHg MV A max chirag: MV P1/2t: 93.2 msec Ao max PG: LV V1 max: 105.1 cm/sec MVA(P1/2t): 2.4 cm2 8.6 mmHg 110.6 cm/sec MV E/A: 1.2 MV dec slope: 386.3 cm/sec2 MV dec time: 0.33 sec PA V2 max: MV P1/2t-pr_phl: 113.5 cm/sec 93.2 msec PA max P.2 mmHg Left Ventricle The left ventricle is grossly normal size. There is mild concentric left ventricular hypertrophy. The left ventricular ejection fraction is normal. Doppler measurements suggest pseudonormalized left ventricular relaxation, which is associated with grade II/IV or mild to moderate diastolic dysfunction. Wall motion cannot be accurately commented on, but no definite regional wall motion abnormalities noted. Right Ventricle The right ventricle is grossly normal size. There is normal right ventricular wall thickness. The right ventricular systolic function is normal. Atria The right atrium is normal. The left atrial size is normal. Interarterial septum not well visualized and not well dopplered. Cannot comment on ASD/PFO presence. Mitral Valve There is mild to moderate mitral annular calcification. There is no mitral valve stenosis. There is a trace amount of mitral regurgitation. Aortic Valve The aortic valve is not well visualized secondary to technical limitations. There is no aortic valve stenosis. No aortic regurgitation is present. Tricuspid Valve The tricuspid valve is not well visualized, but is grossly normal. There is no tricuspid stenosis. There is a trace or physiologic amount of tricuspid regurgitation. Tricuspid regurgitation jet envelope not well defined to measure RV systolic pressure accurately. Pulmonic Valve The pulmonic valve is not well visualized. Great Vessels The aortic root is not well visualized but is probably normal size. The inferior vena cava appeared normal and decreased > 50% with respiration (RAP 5-10 mmHg). Effusions There is no pericardial effusion. : DIONISIO ARORA > Dionisio Arora
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
[2018-07-17] MEDS ORDERED: GABAPENTIN 300 MG CAPSULE PO ONE (22:45)
[2018-07-17] MEDS: ATORVASTATIN CALCIUM 80 MG TABLET PO SCH (22:46)
[2018-07-17] MEDS: RAMIPRIL 5 MG CAPSULE PO SCH (22:46)
[2018-07-17] MEDS: ONDANSETRON HCL INJ/PF 4 MG/2 ML SDV IV PRN (22:50)
[2018-07-18] MEDS: INSULIN LISPRO 100 UNIT/ML 3 ML VIAL SUBCUT PRN ×4 (08:50→21:26)
[2018-07-18] MEDS: DOCUSATE SODIUM 100 MG CAPSULE PO SCH (09:42)
[2018-07-18] MEDS: METOPROLOL SUCCINATE 25 MG TAB.SR.24H PO SCH ×2 (09:48→21:26)
[2018-07-18] MEDS: ASPIRIN 81 MG TABLET, ENT COATED PO SCH (09:49)
[2018-07-18] MEDS: FAMOTIDINE 20 MG TABLET PO SCH (09:49)
[2018-07-18] MEDS: ISOSORBIDE MONONITRATE 60 MG TAB.ER.24H PO SCH (09:50)
[2018-07-18] MEDS: RAMIPRIL 5 MG CAPSULE PO SCH ×2 (09:50→21:25)
[2018-07-18] MEDS ORDERED: CLOPIDOGREL BISULFATE 75 MG TABLET ONE (09:53)
[2018-07-18] MEDS ORDERED: (PENDING PHARMACY ID) (Folic Acid [Folic Acid] 0.4 MG) PO SCH (10:00)
[2018-07-18] MEDS ORDERED: (PENDING PHARMACY ID) (Levothyroxine Sodium [Synthroid] 137 MCG) PO SCH (10:00)
[2018-07-18] MEDS ORDERED: GABAPENTIN 300 MG CAPSULE PO SCH (10:00)
[2018-07-18] MEDS ORDERED: CLOPIDOGREL BISULFATE 300 MG TABLET PO SCH (10:00)
--- NOTE | 2018-07-18 11:47 | PDOC PROGRESS REPORT ---
Subjective Progress Note for:: 07/18/18 Subjective:: Patient claims to have ambulated in the hallway without any problems. She has decided to stay here and have the stress test. Patient seems to be doing better with gradual improvement. Pt is denying any chest arm or neck discomfort. Patient denying any PND, orthopnea. Patient denied any sustained palpitations, dizziness, syncope, near syncope. Patient denying any fever chills. Patient denying any other significant discomfort. Patient is maintaining sinus rhythm. Review of systems: Rest review of systems negative. Medications: Medications have been reviewed. Reason For Visit: NSTEMI Physical Exam Vital Signs: Temp Pulse Resp BP Pulse Ox 98.7 F 66 16 166/51 H 92 07/18/18 07:33 07/18/18 07:33 07/18/18 07:33 07/18/18 07:33 07/18/18 07:33 Intake & Output 07/17/18 07/18/18 07/19/18 06:59 06:59 06:59 Intake Total 2514 1612 Balance 2514 1612 Weight 85.7 kg 86 kg Exam: GENERAL: well-nourished and in no acute distress. Alert and oriented x3 HEAD: Atraumatic, normocephalic. EYES: Pupils equal round and reactive to light, extraocular movements intact, sclera anicteric, conjunctiva are normal. ENT: TMs normal, nares patent, oropharynx clear without exudates. Moist mucous membranes. No oral ulcerations or bleeding gums noted NECK: supple without lymphadenopathy. Trachea is central. No cervical or axillary lymphadenopathy noted. Carotids are 2+, JVD WNL LUNGS: Respiration seems nonlabored, no significant accessory muscle action noted. Breath sounds clear to auscultation bilaterally and equal noted. No wheezes rales or rhonchi noted. No significant dullness noted on percussion. CHEST: Palpation of the chest wall shows no significant chest wall tenderness. 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 ABDOMEN: Soft, no significant tenderness appreciated, normoactive bowel sounds. No guarding, no rebound. No rigidity noted . No masses appreciated. EXTREMITIES: Pedal pulses are 1-2+, no calf tenderness noted. No clubbing or cyanosis. negative pedal edema noted NEUROLOGICAL: Focused neurological exam showed no significant neurologic deficit. Normal speech, no focal weakness appreciated. PSYCH: Normal mood, normal affect. Judgment and insight within normal limits. SKIN: No significant ecchymosis, skin is noted to be warm. MUSCULOSKELETAL EXAM: No significant acute joint swelling noted. Results Laboratory Results: 07/17/18 04:24 07/16/18 04:58 07/15/18 07/17/18 15:50 11:30 Troponin I 1.150 0.317 EKG Comments: Shows sinus rhythm without any sustained tachycardia or bradycardia. Impressions: Chest X-Ray 07/14/18 21:53 IMPRESSION: NO ACUTE RADIOGRAPHIC FINDING IN THE CHEST. Assessment & Plan - Diagnosis (1) NSTEMI (non-ST elevated myocardial infarction) Is this a current diagnosis for this admission?: Yes (2) Diabetes mellitus Qualifiers: Diabetes mellitus type: type 2 Diabetes mellitus retirement insulin use: with predatory animal exterminator use Diabetes mellitus complication status: without complication Qualified Code(s): E11.9 - Type 2 diabetes mellitus without complications; Z79.4 - long-term (current) use of insulin; Z79.4 - termite control technician ( current) use of insulin; Z79.4 - long-term (current) use of insulin; Z79.4 - long-term (current) use of insulin Is this a current diagnosis for this admission?: Yes (3) GERD (gastroesophageal reflux disease) Qualifiers: Esophagitis presence: esophagitis presence not specified Qualified Code(s) : K21.9 - Gastro-esophageal reflux disease without esophagitis Is this a current diagnosis for this admission?: Yes (4) Hyperlipidemia Qualifiers: Hyperlipidemia type: unspecified Qualified Code(s): E78.5 - Hyperlipidemia , unspecified Is this a current diagnosis for this admission?: Yes (5) Hypertension Qualifiers: Hypertension type: essential hypertension Qualified Code(s): I10 - Essential (primary) hypertension Is this a current diagnosis for this admission?: Yes - Notes Notes: Patient wishes to stay here for stress test and hopefully this can be completed tomorrow. Patient in the meantime has been encouraged to ambulate. Non-STEMI: Patient had positive troponin I but no significant EKG changes, patient denies any chest pain but does have diabetes. 2D echo shows normal LVEF. Nuclear stress test is pending. In the meantime with optimize medical management of underlying CAD. Patient does give history of previous stent placement. Diabetes: Recommend good control of blood sugar. However should avoid any hypoglycemia and hyperglycemia. Patient being expertly managed by primary care M.D/hospitalist Gastroesophageal reflux: Recommend proton pump inhibitor, Protonix favored. Hyperlipidemia: LDL goal is less than 70. Continue with high potency statin therapy. Hypertension: Reasonably well controlled. Blood pressure goal in this patient is 135/85 or less. This was discussed with the patient. Currently blood pressure under reasonable control. Better medication for this patient are REECE inhibitor/ARB/beta francisco javier etc. discussed side effects of uncontrolled hypertension and also severe hypotension. Because of patient's comorbid diagnosis, oropharyngeal exam, patient will benefit from evaluation for underlying sleep apnea discussed that sleep apnea is now considered a risk factors for accelerated atherosclerotic disease. - Time Time with patient: Greater than 35 minutes - CODE STATUS was discussed, patient remains full code. Surrogate decision-maker unchanged. Multiple medical problems were addressed. More than 50% of the time spent coordinating care, discussing management plans with involved caregivers. Management plans discussed with involved personnels. Medical decision making was of moderate to high complexity, patient's has multiple comorbidities. Medications reviewed and adjusted accordingly: Yes
[2018-07-18] MEDS: ISOSORBIDE MONONITRATE 30 MG TAB.ER.24H PO SCH (12:11)
[2018-07-18] MEDS: HYDROCHLOROTHIAZIDE 25 MG TABLET PO SCH (12:13)
[2018-07-18] MEDS: CLOPIDOGREL BISULFATE 75 MG TABLET PO SCH (12:15)
[2018-07-18] MEDS: LEVOTHYROXINE SODIUM 0.025 MG TABLET PO SCH (12:16)
[2018-07-18] MEDS: LANSOPRAZOLE 30 MG TAB.RAP.DR PO SCH (12:16)
[2018-07-18] MEDS: LEVOTHYROXINE SODIUM 0.112 MG TABLET PO SCH (12:17)
[2018-07-18] MEDS: GABAPENTIN 300 MG CAPSULE PO SCH ×2 (14:14→21:26)
[2018-07-18] MEDS: FOLIC ACID 1 MG TABLET PO SCH (14:21)
[2018-07-18] MEDS: ATORVASTATIN CALCIUM 80 MG TABLET PO SCH (21:26)
[2018-07-18] MEDS ORDERED: ESCITALOPRAM OXALATE 10 MG TABLET PO SCH (22:00)
[2018-07-19] MEDS ORDERED: INSULIN LISPRO 100 UNIT/ML 3 ML VIAL SUBCUT ONE (06:45)
[2018-07-19] MEDS: GABAPENTIN 300 MG CAPSULE PO SCH (06:46)
[2018-07-19] MEDS: LEVOTHYROXINE SODIUM 0.025 MG TABLET PO SCH (06:46)
[2018-07-19] MEDS: LEVOTHYROXINE SODIUM 0.112 MG TABLET PO SCH (06:46)
[2018-07-19] MEDS: LANSOPRAZOLE 30 MG TAB.RAP.DR PO SCH (06:46)
[2018-07-19] MEDS: INSULIN LISPRO 100 UNIT/ML 3 ML VIAL SUBCUT PRN ×2 (06:47→08:31)
--- NOTE | 2018-07-19 09:20 | PDOC PROGRESS REPORT ---
Subjective Progress Note for:: 07/18/18 Subjective:: COLT KASPER is a 62 year old female with a PMH for IDDM, [place] status post 1 stent, HTN, HLD, hypothyroidism, GERD, and anemia who presented to the ED with a complaint of dehydration due to N/V for the previous 3 days. She reports that she had discontinued her insulin pump due to nausea and vomiting and was concerned about elevated blood sugars. She was noted to have an elevated troponin of 2.340. Offered transfer to [facility] for NSTEMI but the patient refused. "Please fly my doctor here" was her response. The patient was admitted to [facility] for an NSTEMI with Cardiology consulted. The patient was seen this morning on rounds. She is resting comfortably in bed. She has no complaints of chest pain, SOB, or palpitations. Patient has no concerns or complaints this morning. Currently, the patient is awaiting a cardiolite stress test. Continue dual anti-platelet therapy with plavix and ( continuing) aspirin. Echocardiogram completed today, results pending. Reason For Visit: NSTEMI Physical Exam Vital Signs: Temp Pulse Resp BP Pulse Ox 98.8 F 67 16 163/38 H 94 07/19/18 07:22 07/19/18 08:13 07/19/18 07:22 07/19/18 07:22 07/19/18 07:22 Intake & Output 07/18/18 07/19/18 07/20/18 06:59 06:59 06:59 Intake Total 1612 1627 Balance 1612 1627 Weight 86 kg 85.2 kg General appearance: PRESENT: no acute distress, well-developed, well-nourished Head exam: PRESENT: atraumatic, normocephalic Eye exam: PRESENT: conjunctiva pink, EOMI, PERRLA. ABSENT: scleral icterus Ear exam: PRESENT: normal external ear exam Mouth exam: PRESENT: moist, tongue midline Neck exam: ABSENT: carotid bruit, JVD, lymphadenopathy, thyromegaly Respiratory exam: PRESENT: clear to auscultation hollie. ABSENT: rales, rhonchi, wheezes Cardiovascular exam: PRESENT: RRR. ABSENT: diastolic murmur, rubs, systolic murmur Pulses: PRESENT: normal dorsalis pedis pul Vascular exam: PRESENT: normal capillary refill GI/Abdominal exam: PRESENT: normal bowel sounds, soft. ABSENT: distended, guarding, mass, organolmegaly, rebound, tenderness Rectal exam: PRESENT: deferred Extremities exam: PRESENT: full ROM. ABSENT: calf tenderness, clubbing, pedal edema Neurological exam: PRESENT: alert, awake, oriented to person, oriented to place , oriented to time, oriented to situation, CN II-XII grossly intact. ABSENT: motor sensory deficit Psychiatric exam: PRESENT: appropriate affect, normal mood. ABSENT: homicidal ideation, suicidal ideation Skin exam: PRESENT: dry, intact, warm. ABSENT: cyanosis, rash Results Laboratory Results: 07/17/18 04:24 07/16/18 04:58 07/15/18 07/17/18 15:50 11:30 Troponin I 1.150 0.317 Impressions: Chest X-Ray 07/14/18 21:53 IMPRESSION: NO ACUTE RADIOGRAPHIC FINDING IN THE CHEST. Status: Imported from PACS Assessment & Plan - Diagnosis (1) NSTEMI (non-ST elevated myocardial infarction) Is this a current diagnosis for this admission?: Yes Plan: The patient presented with vague symptoms of "dehydration" but is unable to describe her symptoms in detail. She does confirm that she had 3 days of nausea and vomiting prior to arrival to the emergency department. She denies classic cardiac chest pain symptoms, back pain, shoulder pain, headache, dizziness, palpitations, dyspnea. Troponin was elevated 2.34, now trending down. 2.34--> 1.990--> 1.520 EKG demonstrates normal sinus rhythm with nonspecific T-wave changes to the anterior and lateral leads. Chest x-ray is benign. ECHOcardiogram done today, results pending. Admit to the telemetry floor. Cardiology has been consulted Full dose Lovenox and aspirin therapy initiated, transitioned to dual antiplatelet therapy today -aspirin and Plavix (per builder operator, Dr. Wei request) Patient agreed to remain at [facility] for cardiolite stress test, planned for tomorrow. If results are normal, plan for d/c home tomorrow evening. (2) Diabetes mellitus Qualifiers: Diabetes mellitus type: type 2 Diabetes mellitus client manager large law insulin use: with client manager large law use Diabetes mellitus complication status: without complication Qualified Code(s): E11.9 - Type 2 diabetes mellitus without complications; Z79.4 - [facility] (current) use of insulin; Z79.4 - clerical adjudicator ( current) use of insulin; Z79.4 - clerical adjudicator (current) use of insulin; Z79.4 - clerical adjudicator (current) use of insulin Is this a current diagnosis for this admission?: Yes Plan: Patient endorses insulin-dependent diabetes mellitus; utilizes insulin pump at home. She reports that she had nausea and vomiting for several days and therefore discontinued her insulin pump because she was not eating. She presented to the emergency department concerned that she was dehydrated. She is placed on a consistent carb diet. Accu-Cheks before meals and at bedtime with Humalog for sliding scale coverage. Ok to continue insulin pump. Hemoglobin A1c 6.2 (3) Hypertension Qualifiers: Hypertension type: essential hypertension Qualified Code(s): I10 - Essential (primary) hypertension Is this a current diagnosis for this admission?: Yes Plan: The patient endorses hypertension. She is noted to be slightly hypertensive in the emergency department. Continue home dose ramipril and metoprolol IV hydralazine as needed for blood pressure control. Cardiac diet. (4) Nausea and vomiting Qualifiers: Vomiting type: unspecified Vomiting Intractability: non-intractable Qualified Code(s): R11.2 - Nausea with vomiting, unspecified Is this a current diagnosis for this admission?: Yes Plan: Resolved. Antiemetics as needed. - Time Time Spent with patient: Less than 15 minutes Medications reviewed and adjusted accordingly: Yes Anticipated discharge: Home Within: within 24 hours - Inpatient Certification Based on my medical assessment, after consideration of the patient's comorbidities, presenting symptoms, or acuity I expect that the services needed warrant INPATIENT care.: Yes I certify that my determination is in accordance with my understanding of Medicare's requirements for reasonable and necessary INPATIENT services [42 CFR 412.3e].: Yes Medical Necessity: Need For Continuous Telemetry Monitoring, Risk of Complication if Not Cared For in Hospital - Plan Summary Plan Summary: ECHO RESULTS PENDING. STRESS TEST TOMORROW.
[2018-07-19] MEDS: RAMIPRIL 5 MG CAPSULE PO SCH (11:08)
[2018-07-19] MEDS: ASPIRIN 81 MG TABLET, ENT COATED PO SCH (11:09)
[2018-07-19] MEDS: METOPROLOL SUCCINATE 25 MG TAB.SR.24H PO SCH (11:09)
[2018-07-19] MEDS: HYDROCHLOROTHIAZIDE 25 MG TABLET PO SCH (11:09)
[2018-07-19] MEDS: ISOSORBIDE MONONITRATE 30 MG TAB.ER.24H PO SCH (11:09)
[2018-07-19] MEDS: DOCUSATE SODIUM 100 MG CAPSULE PO SCH (11:09)
[2018-07-19] MEDS: CLOPIDOGREL BISULFATE 75 MG TABLET PO SCH (11:09)
[2018-07-19] MEDS: FOLIC ACID 1 MG TABLET PO SCH (11:11)
[2018-07-19 13:53] VITALS: BP 145/46
--- NOTE | 2018-07-19 19:39 | PDOC PROGRESS REPORT ---
Subjective Progress Note for:: 07/19/18 Subjective:: Patient claims to have ambulated in the hallway without any problems. She has decided to stay here and have the stress test. However this morning, because of equipment failure, stress test could not be performed. She was however injected with rest dose. Rest images but not interpretable. Patient does want to go home and is anxious to be discharged. Patient seems to be doing better with gradual improvement. Pt is denying any chest arm or neck discomfort. Patient denying any PND, orthopnea. Patient denied any sustained palpitations, dizziness, syncope, near syncope. Patient denying any fever chills. Patient denying any other significant discomfort. Patient is maintaining sinus rhythm. Review of systems: Rest review of systems negative. Medications: Medications have been reviewed. Reason For Visit: NSTEMI Physical Exam Vital Signs: Temp Pulse Resp BP Pulse Ox 98.6 F 71 16 145/46 H 94 07/19/18 13:52 07/19/18 13:52 07/19/18 13:52 07/19/18 13:52 07/19/18 13:52 Intake & Output 07/18/18 07/19/18 07/20/18 06:59 06:59 06:59 Intake Total 1612 1627 350 Balance 1612 1627 350 Weight 86 kg 85.2 kg Exam: GENERAL: well-nourished and in no acute distress. Alert and oriented x3 HEAD: Atraumatic, normocephalic. EYES: Pupils equal round and reactive to light, extraocular movements intact, sclera anicteric, conjunctiva are normal. ENT: TMs normal, nares patent, oropharynx clear without exudates. Moist mucous membranes. No oral ulcerations or bleeding gums noted NECK: supple without lymphadenopathy. Trachea is central. No cervical or axillary lymphadenopathy noted. Carotids are 2+, JVD WNL LUNGS: Respiration seems nonlabored, no significant accessory muscle action noted. Breath sounds clear to auscultation bilaterally and equal noted. No wheezes rales or rhonchi noted. No significant dullness noted on percussion. CHEST: Palpation of the chest wall shows no significant chest wall tenderness. 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 ABDOMEN: Soft, no significant tenderness appreciated, normoactive bowel sounds. No guarding, no rebound. No rigidity noted . No masses appreciated. EXTREMITIES: Pedal pulses are 1-2+, no calf tenderness noted. No clubbing or cyanosis. negative pedal edema noted NEUROLOGICAL: Focused neurological exam showed no significant neurologic deficit. Normal speech, no focal weakness appreciated. PSYCH: Normal mood, normal affect. Judgment and insight within normal limits. SKIN: No significant ecchymosis, skin is noted to be warm. MUSCULOSKELETAL EXAM: No significant acute joint swelling noted. Results Laboratory Results: 07/17/18 04:24 07/16/18 04:58 07/15/18 07/17/18 15:50 11:30 Troponin I 1.150 0.317 Impressions: Chest X-Ray 07/14/18 21:53 IMPRESSION: NO ACUTE RADIOGRAPHIC FINDING IN THE CHEST. Assessment & Plan - Diagnosis (1) NSTEMI (non-ST elevated myocardial infarction) Is this a current diagnosis for this admission?: Yes (2) Diabetes mellitus Qualifiers: Diabetes mellitus type: type 2 Diabetes mellitus alf insulin use: with alf use Diabetes mellitus complication status: without complication Qualified Code(s): E11.9 - Type 2 diabetes mellitus without complications; Z79.4 - group home (current) use of insulin; Z79.4 - terminal operations manager ( current) use of insulin; Z79.4 - group home (current) use of insulin; Z79.4 - group home (current) use of insulin Is this a current diagnosis for this admission?: Yes (3) GERD (gastroesophageal reflux disease) Qualifiers: Esophagitis presence: esophagitis presence not specified Qualified Code(s) : K21.9 - Gastro-esophageal reflux disease without esophagitis Is this a current diagnosis for this admission?: Yes (4) Hyperlipidemia Qualifiers: Hyperlipidemia type: unspecified Qualified Code(s): E78.5 - Hyperlipidemia , unspecified Is this a current diagnosis for this admission?: Yes (5) Hypertension Qualifiers: Hypertension type: essential hypertension Qualified Code(s): I10 - Essential (primary) hypertension Is this a current diagnosis for this admission?: Yes - Notes Notes: Patient unfortunately could not get a stress test done. She is however anxious to be discharged. Patient has spent several days here ambulating and has had no significant arrhythmias or any chest pain. Therefore it was felt that it is reasonably safe for patient to be discharged with stress test as an outpatient and with current medical regimen. This was discussed with the hospitalist. Non-STEMI: Patient had positive troponin I but no significant EKG changes, patient denies any chest pain but does have diabetes. 2D echo shows normal LVEF. Nuclear stress test is pending and to be performed as an outpatient. In the meantime with optimize medical management of underlying CAD. Patient does give history of previous stent placement. Diabetes: Recommend good control of blood sugar. However should avoid any hypoglycemia and hyperglycemia. Patient being expertly managed by primary care M.D/hospitalist Gastroesophageal reflux: Recommend proton pump inhibitor, Protonix favored. Hyperlipidemia: LDL goal is less than 70. Continue with high potency statin therapy. Hypertension: Reasonably well controlled. Blood pressure goal in this patient is 135/85 or less. This was discussed with the patient. Currently blood pressure under reasonable control. Better medication for this patient are REECE inhibitor/ARB/beta francisco javier etc. discussed side effects of uncontrolled hypertension and also severe hypotension. Sleep disorder: Patient did today confirm history of loud habitual snoring. Because of patient's comorbid diagnosis, oropharyngeal exam, patient will benefit from evaluation for underlying sleep apnea discussed that sleep apnea is now considered a risk factors for accelerated atherosclerotic disease. - Time Time with patient: Greater than 35 minutes - CODE STATUS was discussed, patient remains full code. Surrogate decision-maker unchanged. Multiple medical problems were addressed. More than 50% of the time spent coordinating care, discussing management plans with involved caregivers. Management plans discussed with involved personnels. Medical decision making was of moderate to high complexity, patient's has multiple comorbidities. Medications reviewed and adjusted accordingly: Yes
--- NOTE | 2018-08-04 15:33 | PDOC DISCHARGE SUMMARY ---
General - Admit/Disc Date/PCP Admission Date/Primary Care Provider: 07/15/18 12:41 SELENA MARTIN NP Discharge Date: 07/20/18 - Discharge Diagnosis (1) NSTEMI (non-ST elevated myocardial infarction) Is this a current diagnosis for this admission?: Yes (2) Diabetes mellitus Is this a current diagnosis for this admission?: Yes (3) Hypertension Is this a current diagnosis for this admission?: Yes (4) Nausea and vomiting Is this a current diagnosis for this admission?: Yes - Additional Information Resuscitation Status: Full Code Discharge Diet: As Tolerated Discharge Activity: Activity As Tolerated Prescriptions: Clopidogrel Bisulfate [Plavix 75 mg Tablet] 75 mg PO DAILY #30 tablet Isosorbide Mononitrate [Imdur 30 mg Tablet.er] 30 mg PO DAILY #30 tab.er.24h Metoprolol Succinate [Toprol Xl 25 mg Tab.sr] 25 mg PO Q12 #30 tab.sr.24h Home Medications: Atorvastatin Calcium [Lipitor 80 mg Tablet] 80 mg PO QHS 07/16/18 Escitalopram Oxalate [Lexapro] 20 mg PO QHS 07/16/18 Gabapentin [Neurontin 300 mg Capsule] 600 mg PO TID 07/16/18 Hydrochlorothiazide [Hydrodiuril 25 mg Tablet] 25 mg PO DAILY 07/16/18 Insulin Lispro [Humalog] 0 unit SQ ASDIR PRN 07/16/18 Levothyroxine Sodium [Synthroid] 137 mcg PO Q6AM 07/16/18 Omeprazole 40 mg PO Q6AM 07/16/18 Ascorbic Acid [Vitamin C 500 mg Tablet] 500 mg PO DAILY 07/17/18 Aspirin [Aspirin EC] 81 mg PO QHS 07/17/18 Cartilage/Collagen/Bor/Hyalur [Move Free Ultra Tablet] 1 each PO QHS 07/17/18 Cetirizine HCl [Zyrtec 10 mg Tablet] 1 tab PO QHS 07/17/18 Cholecalciferol (Vitamin D3) [Vitamin D3] 2 tab PO DAILY 07/17/18 Folic Acid 0.4 mg PO DAILY 07/17/18 Vitamin E 2 tab PO DAILY 07/17/18 Clopidogrel Bisulfate [Plavix 75 mg Tablet] 75 mg PO DAILY #30 tablet 07/19/18 Gabapentin [Neurontin 300 mg Capsule] 600 mg PO Q8 capsule 07/19/18 Isosorbide Mononitrate [Imdur 30 mg Tablet.er] 30 mg PO DAILY #30 tab.er.24h Metoprolol Succinate [Toprol Xl 25 mg Tab.sr] 25 mg PO Q12 #30 tab.sr.24h Ramipril [Altace 5 mg Capsule] 5 mg PO Q12 capsule 07/19/18 History of Present Illness History of Present Illness: COLT KASPER is a 62 year old female with a past medical history significant for insulin-dependent diabetes mellitus, DC status post 1 stent, hypertension, hyperlipidemia, hypothyroidism, GERD, and anemia who presented to the emergency department with a complaint of dehydration due to nausea and vomiting for the previous 3 days. She reports that she had discontinued her insulin pump due to nausea and vomiting and was concerned about elevated blood sugars. Evaluation in the emergency department revealed leukocytosis with a WBC of 13.2 which has subsequently resolved, baseline anemia with a hemoglobin of 11.5, slight hypokalemia (3.5), elevated BUN (39), glucose of 134. Most significantly she was noted to have an elevated troponin of 2.340. Initially the patient was arranged to be transferred [facility] all those [facility] for continued care; the patient's established esthetic dermatologist is located at [facility]. At some point, the patient declined the transfer; the ED physician consulted in-house cardiology who approved the patient staying at [facility] for medical management. She was referred to the hospitalist service for admission and management of the above complaints. Hospital Course Hospital Course: COLT KASPER is a 62 year old female with a PMH for IDDM, DC status post 1 stent, HTN, HLD, hypothyroidism, GERD, and anemia who presented to the ED with a complaint of dehydration due to N/V for the previous 3 days. She reports that she had discontinued her insulin pump due to nausea and vomiting and was concerned about elevated blood sugars. She was noted to have an elevated troponin of 2.340 (eventually trended down. 2.34--> 1.990--> 1.520). She denied classic cardiac chest pain symptoms, back pain, shoulder pain, headache, dizziness, palpitations, dyspnea. EKG demonstrates normal sinus rhythm with nonspecific T-wave changes to the anterior and lateral leads. Offered transfer to [facility] for NSTEMI but the patient refused. "Please fly my doctor here" was her response. The patient was admitted to [facility] for an NSTEMI with Cardiology consulted. Full dose Lovenox and aspirin therapy initiated, transitioned to dual antiplatelet therapy today -aspirin and Plavix (per esthetic dermatologist, Dr. Sanjuana potter). Unfortunately, a Cardiolite stress test was unable to be performed due to equipment malfunction. Instead, cardiology optimized the patient's medication regimen to include Imdur, Toprol XL, Ramipril. Patient endorses insulin-dependent diabetes mellitus; utilizes insulin pump at home. She reports that she had nausea and vomiting for several days and therefore discontinued her insulin pump because she was not eating. The patient reports that when she removed her insulin pump, the subcutaneous needle appeared faulty. Prior to discharge, the patient was able to repair the equipment and reinsert/restart her insulin pump. Following 5 days in the hospital, the patient was deemed safe for discharge. She was sent home with prescriptions for Plavix, Imdur, Toprol-XL and ramipril. Her vital signs were all within normal limits. The patient was able to tolerate ambulation around the unit without experiencing chest pain, palpitations or shortness of breath. She was instructed to follow-up with her esthetic dermatologist to complete an outpatient stress test. For any further information regarding the patient's hospitalization, please refer to the EMR. Physical Exam Vital Signs: Temp Pulse Resp BP Pulse Ox 98.6 F 71 16 145/46 H 94 07/19/18 13:52 07/19/18 13:52 07/19/18 13:52 07/19/18 13:52 07/19/18 13:52 Results Laboratory Results: 07/17/18 04:24 07/16/18 04:58 07/15/18 07/17/18 15:50 11:30 Troponin I 1.150 0.317 Impressions: Chest X-Ray 07/14/18 21:53 IMPRESSION: NO ACUTE RADIOGRAPHIC FINDING IN THE CHEST. Status: Imported from PACS Qualifiers - * PATIENT BEING DISCHARGED WITH ANY OF THE FOLLOWING DIAGNOSIS: No Plan Discharge Plan: Discharge home. Follow-up with cardiology for outpatient stress test. Resume using insulin pump. Time Spent: Less than 30 Minutes
== END 2018-07-19 15:15 | disposition home or self-care (01) | DRG 282 ==
LOC: ER 14:53 → EH 07-15 12:41 → 3W 07-15 18:42
PROVIDERS: ADMIT Internal Medicine; ATTEND Emergency Medicine
DX: I21.4 Non-ST elevation (NSTEMI) myocardial infarction (principal); E10.9 Type 1 diabetes mellitus without complications; E78.00 Pure hypercholesterolemia, unspecified; E03.9 Hypothyroidism, unspecified; K21.9 Gastro-esophageal reflux disease without esophagitis; D64.9 Anemia, unspecified; I10 Essential (primary) hypertension; E05.90 Thyrotoxicosis, unspecified without thyrotoxic crisis or storm; M19.90 Unspecified osteoarthritis, unspecified site; E87.6 Hypokalemia; I25.10 Atherosclerotic heart disease of native coronary artery without angina pectoris; Z53.20 Procedure and treatment not carried out because of patient's decision for unspecified reasons; Z96.41 Presence of insulin pump (external) (internal); I25.2 Old myocardial infarction; Z79.4 Long term (current) use of insulin; Z95.5 Presence of coronary angioplasty implant and graft; Z90.49 Acquired absence of other specified parts of digestive tract; Z90.710 Acquired absence of both cervix and uterus; Z88.0 Allergy status to penicillin; Z88.3 Allergy status to other anti-infective agents; Z91.030 Bee allergy status
CPT/HCPCS: 36415; 71045; 80048; 80053; 80061; 81001; 82962; 83036; 83690; 84484; 85025; 85027; 93005; 93010; 93306; 96372; 99285; J1650; J1815; J2405; J3490

== ENCOUNTER → 2018-12-18 | Outpatient (CLI) | payer OTHER ==
--- NOTE | 2018-12-18 13:33 | WOMENS IMAGING REPORT ---
EXAM DESCRIPTION: BONE DENSITY HIP/SPINE COMPLETED DATE/TIME: 12/18/2018 1:20 pm REASON FOR STUDY: M81.8 OTHER OSTEOPOROSIS WITHOUT CURRENT PATHOLOGICAL FRACTURE M81.8 OTHER OSTEOP OROSIS WITHOUT CURRENT PATHOLOGICAL FRACTU COMPARISON: None. TECHNIQUE: Dual-Energy X-ray Absorptiometry (DEXA) of the AP Spine and Hip. LIMITATIONS: None. FINDINGS: LUMBAR SPINE: The bone mineral density (BMD) measured from L1-L4 in the AP projection correlates with a T-score of 2.2, which is normal as defined by the World Health Organization. BMD change since the previous exam ination dated 08/07/2011 is 32.6%. HIP: The bone mineral density (BMD) measured in the left hip correlates with a T-score of -2.1, which is o steopenia as defined by the World Health Organization. BMD change since the examination dated 2010 is -10.0%. IMPRESSION: 1. LUMBAR SPINE: NORMAL. 2. HIP: OSTEOPENIA. COMMENT: The World Health Organization defines low BMD as follows: T-score: Normal: Greater than -1.0 Osteopenia: Between -1.0 and -2.5 Osteoporosis: Less than -2.5 without fractures Established osteoporosis: Less than -2.5 with fractures In general, you may wish to consider: Diagnosis Treatment Follow-up DEXA Normal BMD Prevention 2-3 years Osteopenia Prevention/Therapy 1-2 years Osteoporosis Therapy Yearly TECHNICAL DOCUMENTATION: JOB ID: [id number] [email or web address]- All Rights Reserved Reading location - IP/workstation name: [email or web address]
== END ==
LOC: WI 12:53
PROVIDERS: ATTEND Registered Nurse
DX: M81.8 Other osteoporosis without current pathological fracture (principal)
CPT/HCPCS: 77080

== ENCOUNTER → 2020-04-08 | Outpatient (CLI) | payer OTHER ==
--- NOTE | 2020-04-08 12:13 | WOMENS IMAGING REPORT ---
EXAM DESCRIPTION: 3D SCREENING MAMMO BILAT IMAGES COMPLETED DATE/TIME: 04/08/2020 11:24 am REASON FOR STUDY: Z12.31 SCREENING MAMMO Z12.31 ENCNTR SCREEN MAMMOGRAM FOR MALIGNANT NEOPLASM OF B RE COMPARISON: 2016 to 2018 EXAM PARAMETERS: Views: Standard craniocaudal and mediolateral oblique views of each breast recorded using digital acquisition and breast tomosynthesis. Read with the assistance of CAD. .[facility] Imaging - R2 [employer] Version 2.1 LIMITATIONS: None. FINDINGS: No suspicious masses, suspicious calcifications or architectural distortion. No areas of c oncern. IMPRESSION: NEGATIVE MAMMOGRAM. BIRADS 1. BREAST DENSITY: b. There are scattered areas of fibroglandular density. BIRAD: ASSESSMENT: 1 NEGATIVE RECOMMENDATION: ROUTINE SCREENING COMMENT: The patient has been notified of the results by letter per MQSA requirements. Additional no tification policies are in place for contacting patient with suspicious or incomplete findings. Quality ID #[id number]: The [employer] recommends an annual screening mammogram for women aged 40 years or over. This facility utilizes a reminder system to ensure that all patients receive reminder letters, and/or direct phone calls for appointments. This includes reminders for routine scr eening mammograms, diagnostic mammograms, or other Breast Imaging Interventions when appropriate. Th is patient will be placed in the appropriate reminder system. TECHNICAL DOCUMENTATION: FINDING NUMBER: (1) ASSESSMENT: (1) JOB ID: [id number] [employer]- All Rights Reserved Reading location - IP/workstation name: [email or web address]
== END ==
LOC: WI 10:35
PROVIDERS: ATTEND Obstetrics & Gynecology Gynecology
DX: Z12.31 Encounter for screening mammogram for malignant neoplasm of breast (principal)
CPT/HCPCS: 77063; 77067